=== PATIENT | female | born 1955 | race African-American/Black ===

== ENCOUNTER 2016-11-03 17:38 | Emergency (ER) | payer BC ==
[2016-11-03] MEDS ORDERED: LORAZEPAM 2 MG/ML VIAL IV ONE (17:53)
[2016-11-03] MEDS ORDERED: LORAZEPAM 2 MG/ML VIAL ONE (17:53)
--- NOTE | 2016-11-03 18:02 | DIRPT ---
CLINICAL DATA: Code stroke. Seizure. EXAM: CT HEAD WITHOUT CONTRAST TECHNIQUE: Contiguous axial images were obtained from the base of the skull through the vertex without intravenous contrast. COMPARISON: None. FINDINGS: Despite efforts by the technologist and patient, motion artifact is present on today's exam and could not be eliminated. This reduces exam sensitivity and specificity. On image 12 series 2, there is a suggestion of a peripheral 2.4 by 1.7 cm hyperdense lesion in the right frontal lobe. No underlying cortical erosion or cortical sclerosis along the inner table of the skull identified. No other mass lesion observed. I do not show significant degree of vasogenic edema associated with this lesion. I am uncertain whether the lesion is intra-axial or extra-axial. Otherwise, the brainstem, cerebellum, cerebral peduncles, thalami, basal ganglia, basilar cisterns, and ventricular system appear within normal limits. No acute stroke or acute intracranial hemorrhage is identified. Chronic ethmoid sinusitis observed. IMPRESSION: 1. 2.4 cm potential mass within or along the right frontal lobe peripherally. It is difficult to tell whether this is an intra-axial mass (such as glioma or metastatic lesion) or extra-axial mass (such as meningioma). MRI brain with and without contrast recommended for further characterization. 2. No stroke or intracranial hemorrhage identified. These results were called by telephone at the time of interpretation on 11/03/2016 at 5:[address] ALLIE CRUZ MD, who verbally acknowledged these results. Electronically Signed By: Darius Gagnon M.D. On: 11/03/2016 17:59
[2016-11-03 18:09] VITALS: TEMP 99.4; BMI 28.1
--- NOTE | 2016-11-03 18:12 | EDPRACDOC ---
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 EMS SAID THAT SHE HAD 1 MORE SEIZURE EN ROUTE. IT STOPPED PRIOR TO GETTING MEDS. PT HAD AN ADDITIONAL SEIZURE WHEN SHE ARRIVED HERE. PT GIVEN 4 MG OF VALIUM IM. PT IS UNABLE TO GIVE ANY HX. PT HAS NO HX OF ANY MEDICAL PROBLEMS PER EMS. EMS REPORTS THAT SHE BECAME ALERT AND WAS MOVING EVERYTHING IN BETWEEN SEIZURES. EMS DID REPORT THAT SHE HAS HAD ABOUT A 20 LB WEIGHT LOSS. 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 Given O2 via Cannula EMS Treatment ALS IV Yes ED Past Medical History - History Reviewed No Past Medical History: Yes Patient has no past medical history - Patient Medical History Surgical History: Reports: Other (PT UNABLE TO SAY) - Social Medical History Smoking Status: Heavy tobacco smoker (5 or more cigarettes/day or daily pipe/ cigar) Lives In: Home EDM Review of Systems - Review of Systems ROS Unobtainable: Yes Review of systems cannot be obtained due to the patient's medical condition - Physical Exam Constitutional: Distress, Other (SEIZING) Oriented to: Unable to Test Last recorded Vital Signs: Last Vital Signs Temp 99.4 F 11/03/16 18:00 Pulse 95 11/03/16 18:05 Resp 18 11/03/16 18:05 BP 140/86 11/03/16 18:05 Pulse Ox 92 11/03/16 18:05 Oxygen Pulse Oxygen Saturation 92 O2 Device Nasal Cannula Oxygen Flow Rate 2 Fraction of Inspired Oxygen ( FIO2) - HEENT Head: Normal ( normocephalic) Eye Exam: Other (GAZE TO THE LEFT) Oropharynx: Normal (Pharynx:Moist without exudate,Gums-no swelling) ENT EAC: Normal TMJ: Normal Nose: No Symptoms Reported (septum midline) Neck: Normal (FROM, trachea at midline) - Respiratory/Cardiovascular Respiratory: Normal - CTA Cardiovascular: Tachycardia - GI Auscultation: Normal (NABS) Palpation: Normal (Soft,No rebound or guarding, non distended) Tenderness: Non tender Clancy's Sign: Negative - Musculoskeletal Back: Normal (Non-Tender) Extremities: Normal (Normal tone, Pulses 2+ No cyanosis or edema, FROM) - Integumentary Skin: Normal, Warm, Dry Lymphatics: Normal (no adenopathy) - Neurologic Memory Impaired: Unable to Test Motor Function: Unable to Test Cranial Nerve: Unable to Test Cerebellar: Unable to Test Neurologic Comment: AFTER 3RD SEIZURE, PT WITH LEFT SIDED FACIAL DROOP AND PARALYSIS OF LEFT ARM AND LEFT LEG. PT WILL FOLLOW COMMANDS TO MOVE RIGHT SIDE. PT HAD A 4TH SEIZURE WHILE HERE AND REQUIRED 1 MG OF ATIVAN IV. - Re-evaluation Re-evaluation 1 Re-evaluation Time: 18:45 (PT SOMNOLENT) - Results 11/03/16 17:55 11/03/16 17:55 - Diagnostic Imaging Head Image interpreted by: Radiologist 1. 2.4 cm potential mass within or along the right frontal lobe peripherally. It is difficult to tell whether this is an intra-axial mass (such as glioma or metastatic lesion) or extra-axial mass (such as meningioma). MRI brain with and without contrast recommended for further characterization. 2. No stroke or intracranial hemorrhage identified. These results were called by telephone at the time of interpretation on 11/03/2016 at 5:[address] ALLIE CRUZ MD, who verbally acknowledged these results. Chest Image interpreted by: Radiologist 1. Suspicion for large pulmonary nodule in the right upper lobe. Chest CT recommended (with contrast if feasible). 2. Mild subsegmental atelectasis at the lung bases. Mild chronic elevation of left hemidiaphragm. - Additional Information PT D/W DR. SHAIKH (NEUROLOGY AT [facility]). SHE REQUESTED THAT PT TO GO TO THE ED FOR EVAL. PT WILL BE SENT WITH ALL INFO. PT'S AWARE. ED Critical Care Note - Critical Care Note Total Time (mins): 30 - Departure Yes I personally saw and evaluated the patient. Disposition: Trans. to Other Hospital Condition: Critical Final Diagnosis: Status epilepticus, RIGHT FRONTAL INTRACRANIAL TUMOR, LARGE LEFT PULMONARY NODULE, CVA (cerebral vascular accident) Education/Counseling Given To: Patient Education/Counseling Given Regarding: Diagnosis, Treatment Referrals: None,No Provider [Primary Care Provider] - One Week Decision to Transfer Time: 18:46
[2016-11-03 18:15] LABS: AUTOMATED BASOPHIL 1.1 % (0-2); AUTOMATED EOSINOPHIL 0.6 % (0-5); AUTOMATED MONOCYTE 12.5 % (3-10); AUTOMATED NEUTROPHIL 69.8 % (45-76); MPV 7.8 fL (7.4-10.4)
[2016-11-03 18:21] LABS: LEUKOCYTES/URINE NEG (NEGATIVE); NITRITE/URINE NEG (NEGATIVE); URINE OCCULT BLOOD NEG (NEG/TRACE)
[2016-11-03 18:22] LABS: ALL NEG? YES; MDMA* NEG (NEGATIVE); METHAMPHETAMINES NEG (NEGATIVE); OXYCODONE NEG (NEGATIVE)
[2016-11-03 18:24] LABS: PARTIAL THROMB. TIME 23.9 SEC (22-35)
--- NOTE | 2016-11-03 18:28 | DIRPT ---
CLINICAL DATA: Seizure. The the CT head should possible right frontal lobe mass. EXAM: PORTABLE CHEST 1 VIEW COMPARISON: None. FINDINGS: Although partially obscured by oxygen tubing, there is suspicion for a 2.9 cm right apical pulmonary nodule. There is potentially some mild subsegmental atelectasis at both lung bases, with some chronic elevation of the left hemidiaphragm. Heart size within normal limits. Several ring-like radiodensities projecting over the chest probably reflect a necklace. IMPRESSION: 1. Suspicion for large pulmonary nodule in the right upper lobe. Chest CT recommended (with contrast if feasible). 2. Mild subsegmental atelectasis at the lung bases. Mild chronic elevation of left hemidiaphragm. Electronically Signed By: Darius Gagnon M.D. On: 11/03/2016 18:26
[2016-11-03 18:30] LABS: BLOOD UREA NITROGEN 16 MG/DL (7-17); CALCIUM 10.3 MG/DL (8.4-10.2); CALCULATED OSMOLALITY 274 MOs/Kg (270-290); CHLORIDE 100 mEq/L (98-107); GLUCOSE 100 mg/dL (70-99); SODIUM LEVEL 142 mEq/L (137-146); TOTAL PROTEIN 8.3 G/DL (6.3-8.2)
[2016-11-03] MEDS ORDERED: NS IV ONE (18:30)
[2016-11-03] MEDS ORDERED: FOSPHENYTOIN IV ONE (18:30)
[2016-11-03 18:54] VITALS: BP 106/66; PULSE 86
[2016-11-04] MEDS ORDERED: NALOXONE 2 MG/2 ML SYRINGE ONE (19:42)
== END 2016-11-03 19:10 | disposition short-term general hospital (02) ==
LOC: ED 17:38
DX: G40.909 Epilepsy, unspecified, not intractable, without status epilepticus (principal); R91.1 Solitary pulmonary nodule; D49.6 Neoplasm of unspecified behavior of brain
CPT/HCPCS: 36415; 70450; 71010; 80053; 80307; 81001; 84484; 85025; 85610; 85730; 93005; 96374; 96375; 99284; J1953; J2060; J7030; Q2009; J2310